=== PATIENT | male | born 1960 | race Caucasian/White ===

== ENCOUNTER 2018-10-17 09:37 | Inpatient (IN) | payer BC ==
[~2018-10-17] VITALS: Ht 180.3 cm; Wt 53.1 kg
--- NOTE | 2018-10-17 10:03 | NUR ---
PT CAME IN BYAMBULANCE FOR SUDDEN ONSET OF SOB THIS AM 0730. 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 PT IS AMBULATORY, TALKING IN COMPLETE SENTENCES. APPEARS TO BE IN MILD DISTRESS AND ON FULL CM. CALL LIGHT IN REACH AND I WILL CONTINUE TO MONTIOR PT. PT AWAITING MSE.
[2018-10-17 10:53] LABS: CALCIUM 9.3 mg/dL (8.5-10.1); CARBON DIOXIDE 29.7 mmol/L (21-32); CHLORIDE SERUM 103 mmol/L (98-107); CREATININE SERUM 0.7 mg/dL (0.7-1.3); GFR1 > 60 mL/min; GLUCOSE SERUM 100 mg/dL (74-106); POTASSIUM SERUM 4.2 mmol/L (3.5-5.1); SODIUM SERUM 141 mmol/L (136-145)
[2018-10-17 10:57] LABS: ALKALINE PHOSPHATASE 98 U/L (46-116); ALT/SGPT 30 U/L (16-63); AST/SGOT 18 U/L (15-37); BILIRUBIN TOTAL 0.49 mg/dL (0.20-1.00); TOTAL PROTEIN, SERUM 7.1 g/dL (6.4-8.2)
[2018-10-17 10:59] LABS: ALBUMIN 3.1 g/dL (3.4-5.0)
[2018-10-17 11:01] LABS: BASOPHIL % 0.5 % (0-2); PLATELET COUNT 283 x10^3mcL (130-400); RED CELL DISTRIBUTION WIDTH 19.7 % (11.5-14.5)
--- NOTE | 2018-10-17 11:20 | NUR ---
AT BEDSIDE TO PERFORM PROCEDURE.
--- NOTE | 2018-10-17 11:40 | NUR ---
PROCEDURE COMPLETED BY DR COUCH; XRAY FOR PLACEMENT ORDERED; PT AT BEDSIDE AND PT TOLERATED WELL. VSS.
--- NOTE | 2018-10-17 11:45 | NUR ---
XRAY AT BEDSIDE FOR PLACEMENT
--- NOTE | 2018-10-17 13:21 | NUR ---
LOW SUCTION STOPED BY AT THIS TIME. PT TOLERATING WELL, CALLLIGHT IN REACH AND AT BEDSIDE. I WILL CONTINUE TO MONITOR PT.
--- NOTE | 2018-10-17 15:26 | NUR ---
PT RESTING IN POC WITH AT BEDSIDE. PT IN NO DISTRESS AT THIS TIME.
[2018-10-17 17:51] VITALS: BP 120/75
--- NOTE | 2018-10-17 17:55 | NUR ---
PER AB CANDIEG TO BE DRAWN AT 1999, LET PT RECOVER FROM PROCEDURE IN ER.
--- NOTE | 2018-10-17 18:06 | NUR ---
RECEIVED PT FROM ER VIA [facility] ACCOMPANIED WITH NURSE AND EMT, PT SEEN, ALERT AND ORIENTED X 4 AND VERY VERBALLY RESPONSIVE, DENIES HEADACHE OR DIZZINESS, BREATHING EVEN AND UNLABORED WHILE RESTING IN BED, LUNG SOUNDS DIMINISHED TO BUE AND BLL, SOB ON EXERTION, PT DE-SATS ON ROOM AIR, ON O2 3L VIA NC WITH SPO2:96%, RT PROTOCOL, THORAVENT TO RT UPPER CHEST AND DRESSING C/D/I, ON TELE#5 SR WITH DEPRESSED T-WAVE, DENIES CHEST PAIN, SL TO LAC, PULSES PALPABLE, NO EDEMA NOTED, AMBULATORY WITH STEADY GAIT, ABD SOFT AND FLAT WITH ACTIVE BS, NO BM AT THIS TIME, DENIES ABD PAIN, VOIDING FREELY, NO DISTRESS NOTED, WILL KEEP TO MONITOR.
[2018-10-17 18:18] VITALS: BP 120/75
--- NOTE | 2018-10-17 18:59 | NUR ---
SITTING UP IN BED. BROUGHT OUTSIDE FOOD. HAS LOOSE STOOLS. TO START BACK ON CHEMO MONDAY. ON02 3L NC. BRP. ALERT AND ORIENTED. NO C/O PAIN. HIMLECH VALVE TO RT CHEST SECURED WELL. DOES NOT APPEAR TO BE IN ANY RESP DISTRESS AT THIS TIME. CALL LIGHT WITHIN REACH.
--- NOTE | 2018-10-17 19:15 | NUR ---
PATIENT RECEIVED IN BED DURING BEDSIDE HANDS OFF WITH OUT GOING NURSE ANA MARÍA- PATIENT IS AWAKE, ALERT AND ORIENTED X4, SPEECH CLEAR, LOW TONE OF VOICE.NO RESP. DISTRESS BREATHING EVEN AND UNLABORED , BC DIMINISHED TO RT SIDE, CLEAR TO LEFT SIDE, HAVING OCC SMOKERS COUGH, STATES MILD EXERTIONAL SOB, NOTED RT UPPER ANTERIOR CHEST [place] VALVE NO NOTED DRAINAGE. DENIED CHEST PAINS,HR=96BPM, TELE#5 SR-ST WITH DEPRESSED T-WAVE W/ BBB. HEPLOCK TO LAC INTACT SITE CLEAR. PATIENT AMBULATORY BUT STATED EASILY FATIGUE. HAD BEEN HAVING LOOSE STOOL X3 TODAY, DENIED N/V, FAIR APPETITE.LAST IV CHEMO WAS TWO WEEKS AGO AND DOES IT EVERY OTHER MONDAY, REMAINING 4 SESSION. TATTOO TO BODY. SAFETY/FALL PRECATUIONS MAINTAINED. PATIENT INFORMED ABOUT POC THIS SHIFT. WILL CONTINUE TO MONITOR.
--- NOTE | 2018-10-17 19:54 | NUR ---
COMPLAINED OF BACK PAIN RATED AT 8/10, MEDICATED PRN AND MADE COMFORTABLE IN BED. WILL CHECK EFFECTIVENESS.
[2018-10-17 20:12] VITALS: BP 108/74
--- NOTE | 2018-10-17 20:48 | NUR ---
RE-CHECKED EFFECTIVENESS OF PAIN MEDS GIVEN-PATIENT STATED PAIN IS SLOWLY SUBSIDING RATED AT 2/10 WILL CONITNUE TO MONITOR. NO RESP. DISTRESS THIS TIME , O2 AT 3LNC MAINTAINED TOLERATING WELL.
[2018-10-17 22:15] VITALS: BP 123/84
--- NOTE | 2018-10-17 22:29 | NUR ---
DR YAN MADE AWARE ABOUT REPEATED ABG/O23LNC PO2=72.4.
--- NOTE | 2018-10-17 23:30 | NUR ---
PATIENT ROUNDS MDE PATIENT WITH EYES CLOSED, RESTING COMFORTABLY. O2 MAINTAINED AT SAME RATE TOLERATING. SAFETY MAINTAINED. WILL CONTINUE TO MONITOR.
--- NOTE | 2018-10-18 03:00 | NUR ---
PATIENT RESTING COMFORTABLY THIS TIME NO DISTRESS, O2 AT 3LNC MAINTAINED. WILL CONTINUE TO MONITOR.
--- NOTE | 2018-10-18 05:33 | NUR ---
PATIENT HAD A RESTFUL AND QUIET NIGHT STATED. NO RESP. DISTRESS ENCOUNTERED. HEPLOCK FLUSHED WELL NO RESISTANCE, TAPE SECURED. RT CHEST DAVEY CLOSE THORA VENT INTACT. O2 AT 3LNC MAINTAINED SAT 98%. PATIENT HAD VOIDED BUT FORGOT TO GET A SAMPLE, RE-INSTRUCTED. SAFETY MAINTAINED. WILL ENDORSE CONTINUITY OF CARE TO INCOMING NURSE.
[2018-10-18 05:35] VITALS: BP 94/57
[2018-10-18 06:22] LABS: BASOPHIL % 0.5 % (0-2); PLATELET COUNT 231 x10^3mcL (130-400)
[2018-10-18 06:36] LABS: CALCIUM 7.9 mg/dL (8.5-10.1); CARBON DIOXIDE 32.2 mmol/L (21-32); CHLORIDE SERUM 108 mmol/L (98-107); CREATININE SERUM 0.6 mg/dL (0.7-1.3); GFR1 > 60 mL/min; GLUCOSE SERUM 91 mg/dL (74-106); MAGNESIUM 1.5 mg/dL (1.8-2.4); PHOSPHOROUS 3.5 mg/dL (2.5-4.9); POTASSIUM SERUM 4.4 mmol/L (3.5-5.1); SODIUM SERUM 144 mmol/L (136-145)
[2018-10-18 07:09] LABS: RED CELL DISTRIBUTION WIDTH 19.9 % (11.5-14.5)
--- NOTE | 2018-10-18 07:40 | NUR ---
ALERT AND ORIENTED. ON 02 3L NC. CONGESTED COUGH. LUNG SOUNDS DIMINISHED FAINT RALES TO RT LOWER LOBE. SAYS HIS BACK IS SORE FROM SLEEPING ON HOSPITAL BED. WILL ACCEPT PERCOCET WITH AM MED PASS. SL TO RT AC. THORASIC VENT TO RIGHT CHEST. NOT INUSE AT THIS TIME.SECURED. BRP. INDEPENDENT W ADL'S. TELE #5 SR W DEPRESSED T WAVE. CALL LIGHT WITHIN REACH.
--- NOTE | 2018-10-18 07:49 | NUR ---
BEDSIDE HANDS OFF AND INTRODUCTION PERFORMED WITH INCOMING NURSE ANA MARÍA-RN.
[2018-10-18 08:02] LABS: microscopic required? NO
[2018-10-18 08:51] LABS: UA SPECIFIC GRAVITY 1.025 (1.005-1.035); urine erythrocyte NEGATIVE (NEGATIVE)
[2018-10-18 09:03] VITALS: BP 106/69
--- NOTE | 2018-10-18 09:24 | NUR ---
INFORMED RESIDENT PT REFUSED MAG PO HIS ONCOLOGIST WANTS MAG LEVEL TO BE 0.7-1.1.
[2018-10-18 13:36] VITALS: BP 102/54
[2018-10-18 16:10] VITALS: BP 90/59
--- NOTE | 2018-10-18 18:11 | NUR ---
DAVEY CLOSE THORASIC UNIT ATTACHED TO WALL SUCTION [address] TONYA COUCH ORDER. CXR 1600 SHOWS SOME IMPROVEMENT TO PNEUMOTHORAX. CANISTER TAPED TO FLOOR, BUBBLING. WEARING SCD'S.CONTINUES ON 3L. PERCOCET FOR BACK PAIN.
--- NOTE | 2018-10-18 18:31 | NUR ---
ADMIN PERCOCET FOR BACK PAIN. LYING IN BED WATCHING TV.
--- NOTE | 2018-10-18 19:30 | NUR ---
BEDSIDE HADNOFF DONE WITH ANA MARÍA-RN, PT SEEN, ALERT AND ORIENTED X 4 AND VERY VERBALLY RESPONSIVE, DENIES HEADACHE OR DIZZNESS, BREATHING EVEN AND UNLABORED WHILE RESTING IN BED, LUNG SOUNDS DIMINISHED TO BUE AND BLE, SOB ON EXERTION, RT UPPER CHEST WITH THORA VENT IN PLACE, DRESSING C/D/I, SUCTIONING AT 15 CM, TIDALING NOTED, PLEUROVAC SECURED ON THE GROUND, ON TELE#5 NSR WITH DEPRESSED T-WAVE, DENIES CHEST PAIN, WITH CONTINUE PULSE OX MONITOR, ON O2 3L VIA NC WITH 96%, PULSES PALPABLE, NO EDEMA NOTED, MILD GENERALIZED WEAKNESS, ABLE TO MOVE ALL EXT, ABD SOFT AND FLAT WITH HYPERACTIVE BS, NO BM AT THIS TIME, VOIDING FREELY, FAMILY AT BEDSIDE, NO DISTRESS NOTED, WILL KEEP TO MONITOR.
[2018-10-18 21:37] VITALS: Ht 180.3 cm; Wt 53.1 kg
[2018-10-18 22:25] VITALS: BP 94/60
--- NOTE | 2018-10-18 23:12 | NUR ---
PT C/O OF BACK PAIN, PERCOCET 1 TAB VIA ORAL ADMINISTERED, THORA VENT TO RT UPPER CHEST DRESSING C/D/I, CONTINUE WITH SUCTION AT 15CM WITH PLEUROVAC SECURED ON THE GROUND, NO DRAINAGE NOTED.
--- NOTE | 2018-10-19 00:12 | NUR ---
ROUNDS MADE AFTER MEDICATE PT WITH PERCOCET PO, PT ASLEEP BUT EASILY AROUSABLE, BREATHING EVEN AND UNLABORED ON 3L VIA NC, NO DISTRESS NOTED, WILL KEEP TO MONITOR.
--- NOTE | 2018-10-19 03:35 | NUR ---
ROUNDS MADE, PT ASLEEP BUT EASILY AROUSABLE, BREATHING EVEN AND UNLABORED ON O2 3L VIA NC WITH NO RESP DISTRESS OR SOB NOTED, RT UPPER CHEST WITH THORA VENT WITH CONTINUE SUCTION AT 15 CM, NO DISTRESS NOTED, WILL KEEP TO MONITOR.
[2018-10-19 05:42] VITALS: BP 87/53
--- NOTE | 2018-10-19 05:47 | NUR ---
PT AWAKE AND RESTING IN BED, SLEPT MOST OF NIGHT, DENIES ANY BACK PAIN OR DISCOMFORT AT THIS TIME, MEDICATED ONE TIME PERCOCET PO FOR BACK PAIN WITH GOOD RELIEF, RT UPPER CHEST WITH THORA VENT WITH CONT SUUCTION 15CM, NO OUTPUT NOTED FROM CHEST TUBE, ON O2 3L VIA NC WITH NO RESP DISTRESS OR SOB NOTED, NO DISTRESS NOTED, WILL KEEP TO MONITOR.
[2018-10-19 06:08] VITALS: BP 96/57
--- NOTE | 2018-10-19 07:00 | NUR ---
RECEIVED BEDSIDE REPORT FROM AIR QUALITY ENGINEER NURSE AT THIS TIME. PATIENT RESTING COOMFORTABLY IN BED. NO APPARENT DISTRESS OR DISCOMFORT NOTED. 3L NC IN PLACE AND RIGHT UPPER CHEST THORA VENT WITH 15CM MMHG SUCTION WITH PLEUROVAC SECURED ON GROUND WITH 0ML OUTPUT. BREATHING EVEN AND UNLABORED. NO RESPIRATORY DISTRESS NOTED. PATIENT DENIES SHORTNESS OF BREATH AT THIS TIME. PATIENT DENIES CHEST PAIN/PRESSURE AT THIS TIME. IV PATENT AND INTACT. ALL QUESTIONS AND CONCERNS ADDRESSED. ALL NEEDS ATTENDED TO. WILL CONTINUE TO MONITOR
--- NOTE | 2018-10-19 07:21 | NUR ---
BEDSIDE HANDOFF REPORT DONE WITH MICHELLE, ALL QUESTIONS ANSWERED AND CONCERNS ADDRESSED. RT UPPER CHEST WITH THORA VENT AND CONTINUE SUCTION AT 15CM, DRESSING C/D/I.
[2018-10-19 09:21] LABS: BASOPHIL % 0.5 % (0-2); PLATELET COUNT 251 x10^3mcL (130-400)
[2018-10-19 09:22] VITALS: BP 89/50
[2018-10-19 09:25] LABS: CALCIUM 8.2 mg/dL (8.5-10.1); CARBON DIOXIDE 36.2 mmol/L (21-32); CHLORIDE SERUM 106 mmol/L (98-107); CREATININE SERUM 0.6 mg/dL (0.7-1.3); GFR1 > 60 mL/min; GLUCOSE SERUM 101 mg/dL (74-106); MAGNESIUM 1.4 mg/dL (1.8-2.4); PHOSPHOROUS 3.4 mg/dL (2.5-4.9); POTASSIUM SERUM 3.9 mmol/L (3.5-5.1); SODIUM SERUM 144 mmol/L (136-145)
--- NOTE | 2018-10-19 09:30 | NUR ---
TURNED PATIENT OFF SUCTION AT THIS TIME. REPEAT CHEST X RAY ORDERED FOR 1 HOUR AFTER SUCTION OFF. ALL NEEDS ATTENDED TO. WILL CONTINUE TO MONITOR
[2018-10-19 09:38] LABS: RED CELL DISTRIBUTION WIDTH 20.2 % (11.5-14.5)
--- NOTE | 2018-10-19 10:08 | NUR ---
PATIENT REFUSED BOTH MAGNESIUM PO AND COLACE AT THIS TIME. PATIENT STATES HIS ONCOLOGIST WANTS HIS MAGNESIUM BETWEEN 0.7-1.1. PATIENT DENIES NEED FOR STOOL SOFTNER. WILL NOTIFY ALL NEEDS ATTENDED TO. WILL CONTINUE TO MONITOR
--- NOTE | 2018-10-19 12:00 | NUR ---
DR ALVAREZ AND DR GTZ AT BEDSIDE REVIEWING POC AT THIS TIME. REGULAR SUCTION AT 15 CM MMHG SUCTION TURNED BACK ON AT THIS TIME PER DR ORDER. ALL NEEDS ATTENDED TO. WILL CONTINUE TO MONITOR
--- NOTE | 2018-10-19 12:51 | NUR ---
PATIENT SITTING UP IN BED AT THIS TIME. LUNCH TRAY AT BEDSIDE, BUT HAS NOT TOUCHED TRAY. REPORTS POOR APPETITE. VISITOR AT BEDSIDE. ALL NEEDS ATTENDED TO. WILL CONTINUE TO MONITOR
[2018-10-19 13:01] VITALS: BP 93/56
--- NOTE | 2018-10-19 14:47 | NUR ---
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 Noted pt currently smokes 10 cigs/day, actively trying to quit w/ patch. Unintentional 10# wt loss after starting chemotherapy noted. Pt drinks Ensure at home. Visited pt bedside, family members present. Pt states appetite is alright, but getting better. Pt's sister stated recently started chemotherpay and has lost significant wt since starting. Noticed pt thin appearance, some muscle/fat wasting to shoulders and collarbone area. Pt's PO trending somewhat upwards. All questions answered and all concerns addressed. Problem with: N/V/D/C r/t chemotherapy Problems with: Chewing: No Swallowing: No Current appetite: fair, improving Recent wt change: -10# x 8-14wks (per pt), -18# (per wt log) %wt change: 13.3% Vitamin/Supplement use: Ensure x 2bottles, Vit B12, MVM, Vit B-complex Special diet at home: Regular Physical activity: N/A Nutrition education given (specify specific nutrition education and handout given): None given at this time. Food-drug interactions? Education given? None given at this time. Estimated Nutritional Needs Based on ideal body weight (78 kg) Energy: 9388-1081 kcal/day (30-35 kcal/kg for unintentional wt loss/wt gain) Protein: 78-94 g/day (1.0-1.2 g/kg to preserve lean body mass) Fluid: 0575-8538 mL/day (1 mL/kcal) per MD Nutrition Diagnosis: 1. Malnutrition r/t unintended wt loss, chemotherapy (colon CA metastatic to lung), inadequate PO AEB 16.3 BMI, -10# x 8-14wks, PO <75% Intervention 1. Continue current diet order: Regular Monitor/Evaluate Goal: PO intake at least 75% of estimated needs Monitor: PO intake, Labs, GI function F/U in 2-3 days as high risk 10/21-10/22
--- NOTE | 2018-10-19 14:52 | NUR ---
Recommendations: 1. Continue current diet order: Regular
[2018-10-19 17:00] VITALS: BP 97/60
--- NOTE | 2018-10-19 18:44 | NUR ---
PATIENT RESTING COMFORTABLY IN BED AT THIS TIME. NO APPARENT DISTRESS OR DISCOMFORT NOTED. THORAVENT IN PLACE TO RIGHT CHEST ATTACHED TO SUCTION 15MMHG AND SECURED TO GROUND. PATIENT ON 3L NC AND TOLERATING WELL. IV PATENT AND INTACT. ALL QUESTIONS AND CONCERNS ADDRESSED. ALL NEEDS ATTENDED TO. SAFETY PRECAUTIONS MAINTAINED. WILL ENDORSE ALL CARE TO COLLECTION SUPPORT SPECIALIST NURSE
--- NOTE | 2018-10-19 19:10 | NUR ---
RECEIVED PT LAYING IN BED, NO ACUTE DISTRESS OBSERVED, DENIES DISCOMFORT AT THIS TIME. BREATHING ON 3L NC, EVEN AND UNLABORED, CONTINUOUS PULSE OX, 96% LUNG SOUNDS DIM TO L SIDE, CRACKLES TO MIDDLE RIGHT LOBE, PT DENIES SOB OR DYSPNEA AT REST, ADMITS TO SOB WITH EXERTION. R UPPER CHEST THORAVENT IN PLACE, REINFORCED WITH DRESSING, CDI. THORAVENT CONNECTED TO 15 MMHG CONTINUOUS WATER SUCTION, PLEUROVAC CHEST TUBE SECURED AND TAPED TO FLOOR, NO OUTPUT NOTED. AA/OX4, ABLE TO MAKE NEEDS KNOWN, SPEECH CLEAR AND APPRORPIATE. NSR WITH DEPRESSED T WAVE TO TELE #5, HR 98, DENIES CP OR PRESSURE. PULSES PRESENT AND EQUAL THROUGHOUT, NO EDEMA. ABD SOFT AND FLAT WITH ACTIVE BOWEL SOUNDS, DENIES N/V/D, PT OK TOHAVE OUTSIDE FOOD. FREELY VOUDS URINE, URINAL AT BEDSIDE AND WITHIN REACH. GENERALIZED WEAKNESS, AMBULATORY AT BASELINE. IV TO RAC IN PLACE, DRY, PATENT, INTACT, S/L, NO PAIN, REDNESS OR SWELLING WHEN FLUSHED WITH NS. COMFORT AND SAFETY MEASURES IN PLACE. ALL NEEDS ASSESSED AND ATTENDED TO. CALL LIGHT WITHIN REACH. WILL CONTINUE TO MONITOR.
[2018-10-19 20:28] VITALS: BP 94/59
--- NOTE | 2018-10-19 21:20 | NUR ---
PER SUPERINTENDENT GENERATING PLANT, PT'S HR 125 AND O2 SAT 87% PT BEING RENDERED PERICARE AT THIS TIME.
--- NOTE | 2018-10-20 02:42 | NUR ---
PER TELE MONITOR, PT'S O2 SAT 84%, PT ASSESSED, FOUND LAYING IN BED, BREATHING EVEN AND UNLABORED, ASLEEP WITH EYES CLOSED, NASAL CANNULA OFF. PT EASILY AROUSABLE TO VERBAL STIMULI, 3L NC APPLIED, O2 SAT 93% AND INCREASING. PT DENIES DISCOMFORT. CALL LIGHT WITHIN REACH. WILL CONTINUE TO MONITOR
[2018-10-20 06:00] VITALS: BP 94/57
[2018-10-20 06:02] LABS: BASOPHIL % 0.8 % (0-2); PLATELET COUNT 231 x10^3mcL (130-400)
--- NOTE | 2018-10-20 06:12 | NUR ---
NO SIGNIFICANT CHANGES TO REPORT, PT REMAINS BREATHING ON 3L NC, EVEN AND UNLABORED, CONTINUOUS PULSE OX, 97% R UPPER CHEST THORAVENT IN PLACE, REINFORCED WITH DRESSING, CDI. THORAVENT CONNECTED TO 15 CM MMHG CONTINUOUS WATER SUCTION, PLEUROVAC SECURED AND TAPED TO FLOOR, NO OUTPUT NOTED. PT LAYING IN BED, WATCHING TV, NO ACUTE DISTRESS OBSERVED. COMFORT AND SAFETY MEASURES MAINTAINED. ALL NEEDS ASSESSED AND ATTENDED TO. CALL LIGHT WITHIN REACH. WILL CONTINUE TO MONITOR AND ENDORSE CARE TO DAY SHIFT NURSE
[2018-10-20 06:26] LABS: CALCIUM 8.6 mg/dL (8.5-10.1); CARBON DIOXIDE 31.9 mmol/L (21-32); CHLORIDE SERUM 105 mmol/L (98-107); CREATININE SERUM 0.7 mg/dL (0.7-1.3); GFR1 > 60 mL/min; GLUCOSE SERUM 106 mg/dL (74-106); MAGNESIUM 1.5 mg/dL (1.8-2.4); PHOSPHOROUS 3.6 mg/dL (2.5-4.9); POTASSIUM SERUM 3.7 mmol/L (3.5-5.1); SODIUM SERUM 141 mmol/L (136-145)
--- NOTE | 2018-10-20 06:44 | NUR ---
DR. LEVINE IN TO SEE PT AT THIS TIME, UPDATED ON PT'S STATUS DURING THE NIGHT. MADE AWARE OF ABG RESULTS OF O2 50 ON RA AND REPEAT CXR RESULTS FROM THIS MORNING. ORDERS TO STOP SUCTION AT 0700 AND REPEAT CXR AT 1200. WILL ENDORSE TO DAY SHIFT NURSE
--- NOTE | 2018-10-20 06:50 | NUR ---
DR. LEVINE IN TO SEE PT AT THIS TIME, UPDATED ON PT'S STATUS DURING THE NIGHT. MADE AWARE OF ABG RESULTS OF O2 50 ON RA AND REPEAT CXR RESULTS FROM THIS MORNING. ORDERS TO STOP SUCTION AT 0700 AND REPEAT CXR AT 1100. WILL ENDORSE TO DAY SHIFT NURSE
[2018-10-20 06:52] LABS: RED CELL DISTRIBUTION WIDTH 19.7 % (11.5-14.5)
--- NOTE | 2018-10-20 06:58 | NUR ---
SUCTION TO THORAVENT D/C AT THIS TIME, ORDERED. PT UPDATED AND AGREEABLE TO PLAN, VERBALIZED UNDERSTANDING. PT EDUCATED TO MAKE NURSE AWARE IF HE EXPERIENCES ANY CHEST PAIN, SOB OR RESP DISCOMFORT. REPEAT CXR ORDERED FOR LATER TODAY AT 1100. WILL ENDORSE TO DAY SHIFT NURSE
--- NOTE | 2018-10-20 07:06 | NUR ---
RECEIVED REPORT FROM DEAN CLOUD. PATIENT RESTING COMFORTABLY IN BED. IV TO RAC IS PATENT AND INTACT. NO REDNESS OR PAIN. TELE # [address] PATIENT DENIES CHEST PAIN. THORA VENT NOTED TO RT UPPER CHEST. NO CURRENT SUCTION PER MD ORDERD FOR CXR EVALUATION @ 11:00. PT ON O2 3L NC. NO C/O SOB AND NO DISTRESS NOTED. ALL QUESTIONS AND CONCERNS ADDRESSED.
[2018-10-20 08:57] VITALS: BP 95/59
--- NOTE | 2018-10-20 09:24 | NUR ---
PATIENT CURRENTLY REFUSING MAGNESIUM BUT STATES HE WILL TAKE IT LATER. WILL REATTEMPT.
--- NOTE | 2018-10-20 09:34 | NUR ---
ROUNDS: DR FIGUEROA, RESIDENTS, PRIMARY RN AND FAMILY AT BEDSIDE. DISCUSSED CXR RESULTS AND REPEAT CXR TODAY AT 1100 TO MONITOR PROGRESS. PT TO STAY OVERNIGHT AGAIN. PT ALSO TO BEGIN SOLUMEDROL TREATMENT PER DR ALVAREZ. PT AND FAMILY VERBALIZED UNDERSTANDING AND ALL QUESTIONS AND CONCERNS WERE ADDRESSED.
[2018-10-20 12:25] VITALS: BP 96/60
[2018-10-20 15:02] VITALS: BP 96/60
[2018-10-20 17:07] VITALS: BP 97/56
--- NOTE | 2018-10-20 17:27 | NUR ---
PT HAD ABG THIS AM ON RA. PAO2 50. PT CURRENT ON 3L/M PT HAS CHEST TUBE NO AMBULATION AT THIS TIME.
--- NOTE | 2018-10-20 17:51 | NUR ---
PT C/O BODY PAIN 10/27. PERCOCET ADMINISTERED. PT REPORTS IT DOESN'T REALLY HELP WILL REASSESS AND CONSULT WITH MD IF STRONGER MEDICATION IS NEEDED.
--- NOTE | 2018-10-20 19:25 | NUR ---
PT RESTING IN BED WITH EYES CLOSED, NO ACUTE DISTRESS NOTED. PT CONCERNS ABOUT NOT KNOWING IF THE CHEST TUBE WILL BE INSERTED DR. CARLOS EDUARDO NEVES PHONED SEVERAL TIMES WITH NO REPLY. AOX4, DENIES MUELLER/DIZZINESS. TELE #5, SR W/ INVERTED T WAVE, DENIES CP. PULSES PALPABLE BILAT, DENIES NUMBNESS/TINGLING IN FEET. RESP EVEN AND UNLABORED ON 3L HUMIDIFIED O2, DENIES SOB. PT WITH THORAVENT TO RT CHEST ON CONTINUOUS SUCTION 15MM H2O. PT WITH SUBCUTANEOUS EMPHYSEMA TO BILAT UPPER CHEST, DENIES PAIN WITH PALPATION. PT ON CONTINUOUS PULSE OX. EDUCATED PT TO REPORT SOB/PAIN AT SITE, INCREASING SWELLING TO THE CHEST. PT VERBALIZES UNDERSTANDING. ABD SOFT, FLAT, DENIES PAIN. VOIDS FREELY W/O DYSURIA. GENERALIZED WEAKNESS, PT DESATURATED TO THE 80'S WHEN AMBULATING W/O O2. EDUCATED PT ABOUT THE S/S OF DECREASED O2 AND TO ENSURE HE RETURNS OXYGEN AFTER RESTROOM. PT VERBALIZES UNDERSTANDING YET DENIES LIGHTHEADEDNESS/DIZZINESS WHEN HE DESATURATES. IV SITE TO THE LT HAND, SALINE LOCKED. NO REDNESS, SWELLING OR PAIN NOTED. ALL COMFORT AND SAFETY MEASURES PROVIDED FOR, CALL LIGHT WITHIN REACH, BED IN LOWEST POSITION, WILL CONTINUE TO MONITOR.
--- NOTE | 2018-10-20 19:54 | NUR ---
SPOKE TO DR CHOE IN REGARDS TO UPDATE ON DR. THIBODEAUX COMING IN TO INSERT CHEST TUBE. PER DR. CHOE, DR. THIBODEAUX HAS BEEN CONTACTED TWICE WITH NO RESPONSE. PER DR CHOE, WILL GO IN TO ROOM TO EXPLAIN UPDATE TO PT D/T PT VERY CONCERNED SINCE INITIALLY PT WAS EXPLAINED THE CHEST TUBE NEEDED TP BE INSERTED URGENTLY. DR CHOE IN TO SEE PATIENT AT THIS TIME, WILL FOLLOW AND ENSURE PT REMAINS UP TO DATE AND REMAINS STABLE W/O SOB/CP. PT CONTINUES TO BE ON 3L HUMIDIFIED O2. DENIES SOB. CALL LIGHT WITHIN REACH, BED IN LOWEST POSITION, WILL CONTINUE TO MONITOR.
--- NOTE | 2018-10-20 19:58 | NUR ---
REPORT GIVEN TO BERT CLOUD. ALL QUESTIONS AND CONCERNS ADDRESSED. ALL CARES ENDORSED.
--- NOTE | 2018-10-20 20:27 | NUR ---
ATTEMPTED TO CONTACT DR. THIBODEAUX PER PT REQUEST TO FOLLOW UP WITH ORDER TO INSERT CHEST TUBE. NO ANSWER AT THIS TIME. PER DR. CHOE, WILL FOLLOW UP IN AM TO ASSESS IF ANOTHER SURGEON CAN COME IN. PT APPEARS HOPELESS AT THIS TIME, STATING HE WANTS TO BE TRANSFERRED TO [place] SINCE ALL HIS CARE FOR CHEMO HAVE BEEN MANAGED THERE. EDUCATED PT ABOUT THE TRANSFER PROCESS NEEDS APPROVAL AND A BED. PT AND FAMILY VERBALIZE UNDERSTANDING, WILL CONTINUE TO MONITOR. CALL LIGHT WITHIN REACH, BED IN LOWEST POSITION, ALL COMFORT AND SAFETY MEASURES PROVIDED FOR.
[2018-10-20 22:27] VITALS: BP 112/70
--- NOTE | 2018-10-20 22:50 | NUR ---
ASSISTED PT TO RESTROOM PER REQUEST. CHEST TUBE CLAMPED PER REQUEST. PT STABLE ON FEET, DENIES MUELLER/DIZZINESS. PT EDUCATED TO PUSH CALL LIGHT WHEN DONE TO BE REATTACHED TO SUCTION. PT VERBALIZES UNDERSTANDING.
[2018-10-21 04:55] VITALS: BP 100/65
--- NOTE | 2018-10-21 04:59 | NUR ---
PT RESTED IN INTERVALS DURING SHIFT, NO ACUTE CHANGES OCCURING OVERNIGHT. PT REMAINS WITH THORAVENT CHEST TUBE IN PLACE TO CONTINUOUS SUCTION 15 MMH20, NO UPDATE YET FROM RESIDENTS IN REGARDS TO AVAILABLE SURGEON TO INSERT NEW CHEST TUBE, WILL FOLLOW UP THIS AM. PT REMAINS FREE OF SOB/CP. PT AMBULATED X1 TO RESTROOM WITH A DESATURATION TO LOW 78%-87%. PT DENIES LIGHTHEADEDNESS/ DIZZINESS DURING EPISODES OF DESATURATION. PT IV SITE REMAINS PATENT TO LT HAND, SALINE LOCKED. NO REDNESS, SWELLING OR PAIN NOTED. PT REMAINS ON 3L HUMIDIFIED O2. ALL COMFORT AND SAFETY MEASURES PROVIDED FOR, CALL LIGHT WITHIN REACH, BED IN LOWEST POSITION, WILL CONTINUE TO MONITOR.
[2018-10-21 06:41] LABS: CALCIUM 8.7 mg/dL (8.5-10.1); CARBON DIOXIDE 25.1 mmol/L (21-32); CHLORIDE SERUM 105 mmol/L (98-107); CREATININE SERUM 0.5 mg/dL (0.7-1.3); GFR1 > 60 mL/min; GLUCOSE SERUM 132 mg/dL (74-106); MAGNESIUM 1.8 mg/dL (1.8-2.4); PHOSPHOROUS 3.3 mg/dL (2.5-4.9); POTASSIUM SERUM 4.2 mmol/L (3.5-5.1); SODIUM SERUM 139 mmol/L (136-145)
--- NOTE | 2018-10-21 07:05 | NUR ---
RECEIVED BEDSIDE REPORT FROM NIGHT GUARD NURSE AT THIS TIME. PATIENT RESTING COMFORTABLY IN BED. NO APPARENT DISTRESS OR DISCOMFORT NOTED. 3L NC IN PLACE. SUBCUTANEOUS EMPHYSEMA NOTED. PATIENT DENIES RESPIRATORY DISTRESS OR DISCOMFORT. PATIENT DENIES SHORTNESS OF BREATH. PATIENT ON CONTINUOUS O2 MONITORING 97%. PATIENT HAS THORAVENT TO RIGHT UPPER CHEST CONNECTED TO 15MMHG CONTINUOUS SUCTION. NO C/O CHEST PAIN/PRESSURE AT THIS TIME. IV PATENT AND INTACT TO LEFT HAND. ALL QUESTIONS AND CONCERNS ADDRESSED. ALL NEEDS ATTENDED TO. WILL CONTINUE TO MONITOR
[2018-10-21 07:25] LABS: BASOPHIL % 0.3 % (0-2); PLATELET COUNT 191 x10^3mcL (130-400)
[2018-10-21 07:26] LABS: RED CELL DISTRIBUTION WIDTH 20.3 % (11.5-14.5); rbc morphology (normal/abnorm) ABNORMAL (NORMAL)
--- NOTE | 2018-10-21 07:37 | NUR ---
ALL CARE ENDORSED TO DAYSHIFT NURSE, NO ACUTE DISTRESS NOTED. ALL COMFORT AND SAFETY MEASURES PROVIDED FOR, CALL LIGHT WITHIN REACH, BED IN LOWEST POSITION.
[2018-10-21 09:14] VITALS: BP 96/61
--- NOTE | 2018-10-21 09:35 | NUR ---
NOTIFIED SENIOR JAVA J2EE DEVELOPER ABOUT TRANSFER ORDER TO [facility]. SENIOR JAVA J2EE DEVELOPER WILL CONTACT [facility]. ATTENDING NURSE ZAYRA MADE AWARE.
--- NOTE | 2018-10-21 09:58 | NUR ---
PATIENT REFUSED COLACE AT THIS TIME. PATIENT MAG 1.8 AND DOES NOT NEED MAGNESIUM PO. DR GTZ AWARE. ADMINISTERED SOLU-MEDROL AND PATIENT TOLERATED WELL. NO ADVERSE EFFECTS NOTED. ALL NEEDS ATTENDED TO. WILL CONTINUE TO MONITOR
[2018-10-21 12:41] VITALS: BP 110/69
--- NOTE | 2018-10-21 12:44 | NUR ---
PATIENT SITTING UP IN BED WITH MEAL TRAY AT BEDSIDE. PATIENT ABLE TO HAVE OUTSIDE FOOD. FAMILY AT BEDSIDE. ALL NEEDS ATTENDED TO. WILL CONTINUE TO MONITOR
--- NOTE | 2018-10-21 14:45 | NUR ---
DR REID AT BEDSIDE AT THIS TIME. FAMILY MEMBERS AT BEDSIDE. ALL QUESTIONS AND CONCERNS ADDRESSED. ALL NEEDS ATTENDED TO. WILL CONTINUE TO MONITOR
--- NOTE | 2018-10-21 16:33 | NUR ---
PATIENT ASSISTED TO THE RESTROOM. PATIENT REQUESTED TO HAVE HIS THORAVENT CLAMPED. AMBULATES WITH STEADY GAIT. NO APPARENT DISTRESS OR DISCOMFORT NOTED. ASSISTED PATIENT BACK TO BED, TUBE UNCLAMPED, AND ATTACHED THORAVENT BACK TO SUCTION 15MMHG. ALL QUESTIONS AND CONCERNS ADDRESSED. ALL NEEDS ATTENDED TO. WILL CONTINUE TO MONITOR
--- NOTE | 2018-10-21 16:40 | NUR ---
DR GTZ AT BEDSIDE REVIEWING POC WITH PATIENT AND PATIENTS FAMILY. ALL QUESTIONS AND CONCERNS ADDRESSED. ALL NEEDS ATTENDED TO. WILL CONTINUE TO MONITOR
[2018-10-21 17:36] VITALS: BP 105/65
--- NOTE | 2018-10-21 17:36 | NUR ---
PATIENT SITTING UP IN BED EATING FOOD BROUGHT IN BY DAUGHTER. PATIENT TOLERATING FOOD WELL. NO APPARENT DISTRESS OR DISCOMFORT NOTED. ALL NEEDS ATTENDED TO. WILL CONTINUE TO MONITOR
--- NOTE | 2018-10-21 17:43 | NUR ---
PATIENT C/O BACK PAIN AT THIS TIME. PATIENT MEDICATED WITH PERCOCET PO PRN AT THIS TIME. PATIENT TOLERATED MEDICATION WELL. NO ADVERSE EFFECTS NOTED. ALL NEEDS ATTENDED TO. WILL CONTINUE TO MONITOR
--- NOTE | 2018-10-21 18:30 | NUR ---
PATIENT RESTING COMFORTABLY IN BED AT THIS TIME. NO APPARENT DISTRESS OR DISCOMFORT NOTED. THORAVENT TO RIGHT UPPER CHEST ATTACHED TO SUCTION. PATIENT ON 3L NC AND TOLERATING WELL. IV PATENT AND INTACT TO PATIENT LEFT HAND. ALL QUESTIONS AND CONCERNS ADDRESSED. SAFETY PRECAUTIONS MAINTAINED. ALL NEEDS ATTENDED TO. FAMILY AT BEDSIDE. WILL ENDORSE ALL CARE TO OFFSET PLATEMAKER NURSE
--- NOTE | 2018-10-21 19:06 | NUR ---
SPOKE TO SAVANNAH FROM [facility] AT THIS TIME. PER SAVANNAH, THEY WILL CONTINUE TO WORK ON TRANSFER TO [facility] NOT LIKELY TO TRANSFER [facility] 10/21/18. ALL QUESTIONS AND CONCERNS ADDRESSED. WILL ENDORSE TO SHORTAGE WORKER NURSE
--- NOTE | 2018-10-21 19:25 | NUR ---
PT RESTING IN BED WITH EYES CLOSED, NO ACUTE DISTRESS NOTED. ATTENTIVE AT BEDSIDE. AOX4, DENIES MUELLER/DIZZINESS. TELE #5, SR 93 W/ INVERTED T WAVE, DENIES CP. PULSES PALPABLE BILAT, DENIES NUMBNESS/TINGLING IN FEET. RESP EVEN AND UNLABORED ON 3L HUMIDIFIED O2, DENIES SOB. PT WITH THORAVENT TO RT CHEST ON CONTINUOUS SUCTION 15MM H2O. PT WITH SUBCUTANEOUS EMPHYSEMA TO BILAT UPPER CHEST, DENIES PAIN WITH PALPATION. PT ON CONTINUOUS PULSE OX. EDUCATED PT TO REPORT SOB/PAIN AT SITE, INCREASING SWELLING TO THE CHEST. PT VERBALIZES UNDERSTANDING. ABD SOFT, FLAT, DENIES PAIN. VOIDS FREELY W/O DYSURIA. GENERALIZED WEAKNESS, PT HAD NO EPISODES OF DESATURATIONS DURING DAYSHIFT, PT REPORTS FEELING ALOT BETTER AND LESS FATIGUED. PT UPDATED ON PLAN OF CARE BY DR. PHILLIPS, PT UNDERSTANDS DR THIBODEAUX WILL NOT INSERT A CHEST TUBE AND PT IS PENDING TRANSPORTATION TO [facility] WHEN BED IS AVAILABLE TO HAVE HIS CARE CONTINUED FOR CONTINUITY. PT COOPERATIVE WITH PLAN OF CARE AT THIS TIME. IV SITE TO THE LT HAND, SALINE LOCKED. NO REDNESS, SWELLING OR PAIN NOTED. ALL COMFORT AND SAFETY MEASURES PROVIDED FOR, CALL LIGHT WITHIN REACH, BED IN LOWEST POSITION, WILL CONTINUE TO MONITOR.
[2018-10-21 20:02] VITALS: BP 98/65
--- NOTE | 2018-10-21 21:40 | NUR ---
MEDICATED PT WITH PERCOCET PO FOR MODERATE GENERALIZED BODY PAIN, PT TOLERATED MEDICATION WELL, CHEST TUNE REMAINS IN PLACE TO THE RIGHT UPPER CHEST, CONNECTED TO CONTINUOUS SUCTION 15 MM H20, ALL COMFORT AND SAFETY MEASURES PROVIDED FOR, CALL LIGHT WITHIN REACH, WILL CONTINUE TO MONITOR.
--- NOTE | 2018-10-22 | NUR ---
UPON CHECKING ON PT, PT SEEN SITTING UP IN BED WATCHING TV. NO ACUTE DISTRESS NOTED. THORAVENT TUBE REMAINS ON CONTINUOUS SUCTION, PT DENIES SOB/CP AT THIS TIME. ALL COMFORT AND SAFETY MEASURES PROVIDED FOR, CALL LIGHT WITHIN REACH, BED IN LOWEST POSITION, WILL CONTINUE TO MONITOR.
--- NOTE | 2018-10-22 05:00 | NUR ---
PT RESTED IN INTERVALS DURING SHIFT, NO ACUTE CHANGES OCCURRING OVERNIGHT. PT MEDICATED X1 WITH PERCOCET FOR PAIN, MANAGED WELL THROUGHOUT SHIFT. PT REMAINS ON 3L HUMIDIFICED O2, DENIES SOB DURING SHIFT. IV SITE REMAINS PATENT TO THE LEFT HAND, DRESSING CHANGED D/T SOILAGE. PT TOLERATED WELL. ALL COMFORT AND SAFETY MEASURES PROVIDED FOR, CALL LIGHT WITHIN REACH, BED IN LOWEST POSITION, WILL CONTINUE TO MONITOR.
[2018-10-22 05:01] VITALS: BP 105/69
[2018-10-22 06:35] LABS: CALCIUM 9.5 mg/dL (8.5-10.1); CARBON DIOXIDE 28.2 mmol/L (21-32); CHLORIDE SERUM 104 mmol/L (98-107); CREATININE SERUM 0.7 mg/dL (0.7-1.3); GFR1 > 60 mL/min; GLUCOSE SERUM 113 mg/dL (74-106); MAGNESIUM 1.9 mg/dL (1.8-2.4); PHOSPHOROUS 3.9 mg/dL (2.5-4.9); PLATELET COUNT 312 x10^3mcL (130-400); POTASSIUM SERUM 4.8 mmol/L (3.5-5.1); SODIUM SERUM 143 mmol/L (136-145)
[2018-10-22 06:38] LABS: BASOPHIL % 0 % (0-2); RED CELL DISTRIBUTION WIDTH 20.7 % (11.5-14.5)
--- NOTE | 2018-10-22 06:50 | NUR ---
AT 0642, RECEIVED A CALL FROM [facility], PT IS ACCEPTED IN UNIT 6200, BED 6211 BED 2, ACCEPTING DR IS Crystal MANJARREZ CALL REPORT TO PRIMARY RN MADE AWARE, RESIDENT MADE AWARE WELL.
--- NOTE | 2018-10-22 07:43 | NUR ---
A+OX4, NO RESPRIATORY DISTRESS NOTED, DENIES PAIN, TELE 5, PULSES MODERATE AND EQUAL JOSE ALBERTO, NO EDEMA NOTED, SUBCUTANEOUS EMPHYSEMA, DIM BASES AND CRACKLES, 3L NC, CONT PULSE OX, THORAVENT R UPPER CHEST CONNECTED TO 15 MM H20 CONT SUCTION, BOWEL SOUNDS ACTIVE, VOIDING FREELY, GENERALIZED WEAKNESS, DENIES SOB, FX TO 3RD, 4TH, 5TH, 6TH, RIBS, AMBULATORY, CHEST TUBE SITE TO R UPPER CHEST CDI, IV IN L HAND SALINE LOCKED, SITE WNL.
--- NOTE | 2018-10-22 08:34 | NUR ---
RADIOLOGY NOTIFIED ME OF RECENT CXR RESULTS: LESS THAN 5% R PNEUMOTHORAX. MANAGER INTERVENTIONAL STATES SHE WILL NOTIFY DR RENE PERSONALLY. MANAGER INTERVENTIONAL GIVEN DR RENE PAGER NUMBER AND RESIDENT CALL PHONE NUMBER.
--- NOTE | 2018-10-22 08:59 | NUR ---
PT RESTING IN BED, NO RESPIRATORY DISTRESS NOTED, DENIES PAIN, AT BEDSIDE, CALL LIGHT WITHIN REACH.
[2018-10-22 09:26] VITALS: BP 110/74
--- NOTE | 2018-10-22 09:28 | NUR ---
PT RESTING IN BED, COMPLAINING OF BACK PAIN, NO RESPIRATORY DISTRESS NOTED, REQUESTING PERCOCET PO, PEROCET PO GIVEN. CALL LIGHT WITHIN REACH, FAMILY AT BEDSIDE.
[2018-10-22 09:36] VITALS: BP 110/74
--- NOTE | 2018-10-22 10:25 | NUR ---
REPORT GIVEN TO LAUREN CLOUD @ [facility].
--- NOTE | 2018-10-22 10:42 | NUR ---
PT AND FAMILY AWARE AND AGREEABLE TO TRANFER TO [facility]. WITNESSED PT SIGN ALL DC FORMS INCLUDING TRANSFER ACKNOWLEDGMENT. IV IN L HAND IN REMAIN INTACT FOR TRANSFER PER CHARGE NURSE. THORAVENT INTACT AND CONNECTED TO SUCTION 15 MM H20. GIVEN [facility] PHONE NUMBER AND ROOM NUMBER PT TO BE IN ROOM 6211 BED 2 @ [facility]. AWAITING TRANSPORT.
--- NOTE | 2018-10-22 11:33 | NUR ---
PT TAKEN OFF UNIT VIA [facility] ON 3L NC, THORAVENT INTACT, WITH ALL BELONGINGS, [facility] RN TO PLACE PT ON SUCTION 15 MM HG IN AMBULANCE. FAMILY AWARE AND STATE THEY WILL MEET PT AT [facility].
== END 2018-10-22 11:29 | disposition short-term general hospital (02) | DRG 199 ==
LOC: ED 09:37 → DU 16:08
PROVIDERS: Emergency Medicine; ADMIT Internal Medicine
PROC: 0W9930Z Drainage of Right Pleural Cavity with Drainage Device, Percutaneous Approach (ICD-10-PCS; principal; 2018-10-17)
DX: J93.83 Other pneumothorax (principal); J96.01 Acute respiratory failure with hypoxia; E43 Unspecified severe protein-calorie malnutrition; M84.48XA Pathological fracture, other site, initial encounter for fracture; C78.00 Secondary malignant neoplasm of unspecified lung; C79.51 Secondary malignant neoplasm of bone; Z68.1 Body mass index [BMI] 19.9 or less, adult; C79.89 Secondary malignant neoplasm of other specified sites; C79.70 Secondary malignant neoplasm of unspecified adrenal gland; E83.42 Hypomagnesemia; J44.9 Chronic obstructive pulmonary disease, unspecified; Z88.7 Allergy status to serum and vaccine; Z85.038 Personal history of other malignant neoplasm of large intestine; Z92.21 Personal history of antineoplastic chemotherapy; F17.200 Nicotine dependence, unspecified, uncomplicated; Z71.6 Tobacco abuse counseling; I48.91 Unspecified atrial fibrillation; J98.2 Interstitial emphysema
CPT/HCPCS: 32551; 36600; 94150; 99406; C1729; G0378; J1956; J2001; J2405; J2920; J3010; J7030; J7620; J7633; Q0092